=== PATIENT | female | born 1995 | race African-American/Black ===

== ENCOUNTER 2017-01-16 17:26 | Emergency (ER) | payer SELFPAY ==
--- NOTE | ~2017-01-16 | ER ---
PATIENT'S NAME: CASSIE BENTLEY [facility] AGE: 21 Y [address] ROOM: [place] [address] LOCATION: [facility] ADMIT DATE: 01/16/2017 ER/Outpatient Report DISCHARGE DATE: 01/16/2017 FAMILY PHYSICIAN: PHYSICIAN, NO ATTENDING PHYSICIAN: Wallace Newton Time of Arrival: 1726 hours. Time of Evaluation: 1735 hours. CHIEF COMPLAINT: Right lower quadrant abdominal pain. HISTORY OF PRESENT ILLNESS: This is a 21-year-old female who presents to the ER with right lower quadrant abdominal pain, this started yesterday. She states her pain did increase today. She states that it does make her feel nauseated. She has had no vomiting, no diarrhea, no constipation. She states that she has no troubles with urination. She describes her pain as stabbing in nature, it does not radiate anywhere. She states that she does have some symptoms of , so she is wondering if she could be because she is a few days late on her period. She states that she has not taken anything for pain prior to coming in. ALLERGIES: NO KNOWN ALLERGIES. MEDICATIONS: None. PAST MEDICAL HISTORY: She has had 4 children and 1 miscarriage. She did have to be on insulin during her . SOCIAL HISTORY: She has had 4 C-sections. Denies any drug or alcohol use. REVIEW OF SYSTEMS: A 10-point review of systems was completed and was negative with the exception of those discussed in the HPI. PHYSICAL EXAMINATION: VITAL SIGNS: Weight 77.6 kg taken, blood pressure 118/77, pulse 86, respirations 20, temperature 97.4 degrees tympanically, saturations 99% on room air. [place] Coma Score is 15. GENERAL: Alert, calm, well-developed female, in no obvious distress. PATIENT'S NAME: CASSIE BENTLEY [facility] AGE: 21 Y [address] ROOM: [place] [address] LOCATION: [facility] ADMIT DATE: 01/16/2017 ER/Outpatient Report DISCHARGE DATE: 01/16/2017 FAMILY PHYSICIAN: PHYSICIAN, NO ATTENDING PHYSICIAN: Wallace Newton HEENT: Head, normocephalic. Eyes, pupils are equal and reactive to light. She does display moist mucous membranes. LUNGS: Clear to auscultation bilaterally. No wheezes or crackles. HEART: Regular rate and rhythm. ABDOMEN: Soft. She does have some tenderness in her right lower quadrant with palpation. No guarding, no rebound tenderness. She has good bowel sounds throughout. EXTREMITIES: No clubbing or cyanosis. She does have full range of motion of all limbs. LABORATORY DATA AND X-RAYS: CBC: White count is 11.2, hemoglobin is 11.9, platelets 340. CMS: Glucose is 155, otherwise unremarkable. Urinalysis is negative for any infection. Urine HCG was negative. CT scan was done of the abdomen and pelvis and was negative for any acute findings. IMPRESSION: Right lower quadrant abdominal pain. ASSESSMENT AND PLAN: The patient rested comfortably here her entire stay. We will dismiss her to home. She may take Tylenol and ibuprofen as needed for pain control. She is to continue to push fluids, monitor her symptoms, and follow up with the primary care physician if no improvement. We did give her business cards for primary care physicians in [facility]. The patient understands and agrees with care. YUE AGGARWAL PA-C FOR MD PATEL SILVA/carlitos /[id number] d: 01/17/17 0126 t: 01/30/17 1933, OUTPATIENT REPORT
[2017-01-16 18:07] LABS: BASOPHIL # 0.1 K/uL (0.0-0.2); BASOPHIL % 0.4 %; EOSINOPHIL # 0.1 K/uL (0.0-0.5); EOSINOPHIL % 1.1 %; HEMOGLOBIN 11.9 g/dL (11.0-15.0); IMMATURE GRANULOCYTE % 0.3 %; LYMPHOCYTE # 2.9 K/uL (0.8-4.0); LYMPHOCYTE % 25.4 %; MCH 23.8 pg (27.0-34.0); MCHC 30.5 gm/dL (32.0-36.5); MCV 78.2 fl (83.0-98.0); MONOCYTE # 0.5 K/uL (0.0-1.0); MONOCYTE % 4.4 %; MPV 11.4 fl (9.4-12.4); NEUTROPHIL # (ANC) 7.7 K/uL (1.8-7.8); NEUTROPHIL % 68.4 %; NRBC % 0 /100WBC (0-0.00); PLATELET COUNT 340 K/uL (150-450); RBC 4.99 M/uL (3.50-5.00); RDW-CV 16.8 % (11.9-14.6); WBC 11.2 K/uL (4.0-11.0)
[2017-01-16 18:12] LABS: BILIRUBIN URINE NEGATIVE (NEGATIVE); BLOOD URINE NEGATIVE /UL (NEGATIVE); COLOR URINE YELLOW (YELLOW); GLUCOSE URINE 50 mg/dL (NEGATIVE); KETONE URINE NEGATIVE (NEGATIVE); LEUKOCYTES URINE NEGATIVE /UL (NEGATIVE); NITRITE URINE NEGATIVE (NEGATIVE); PROTEIN URINE NEGATIVE (NEGATIVE); SPEC GRAVITY URINE 1.015 (1.003-1.035); TURBIDITY URINE CLEAR (CLEAR); UROBILINOGEN URINE NORMAL (NORMAL)
[2017-01-16 18:20] LABS: ALBUMIN 3.6 gm/dL (3.5-5.0); ALK PHOS 111 IU/L (33-138); ALT 30 IU/L (12-78); ANION GAP 11.8 (10.0-19.0); AST 15 IU/L (10-40); BLOOD UREA NITROGEN 10 mg/dL (6-24); CALCIUM 8.7 mg/dL (8.5-10.5); CHLORIDE 104 mMol/L (96-110); CO2 29 mMol/L (22-32); CREATININE 0.6 mg/dL (0.5-1.1); ESTIMATED GFR (MDRD EQUATION) > 60; POTASSIUM 3.8 mMol/L (3.7-5.1); SODIUM 141 mMol/L (135-145); TOTAL BILIRUBIN 0.2 mg/dL (0.0-1.5)
== END 2017-01-16 19:40 | disposition disaster alternative care site (69) ==
LOC: GMED 17:26
PROVIDERS: Physician Assistant Medical
DX: R10.31 Right lower quadrant pain (principal)
CPT/HCPCS: Q9967

== ENCOUNTER 2017-02-02 21:22 | Emergency (ER) | payer SELFPAY ==
--- NOTE | ~2017-02-02 | ER ---
PATIENT'S NAME: CASSIE BENTLEY [facility] AGE: 21 Y [address] ROOM: [place] [address] LOCATION: ED ADMIT DATE: 02/02/2017 ER/Outpatient Report DISCHARGE DATE: 02/02/2017 FAMILY PHYSICIAN: PHYSICIAN, NO ATTENDING PHYSICIAN: Dhiraj Vargas TIME SEEN: 2140 hours. CHIEF COMPLAINT: Abdominal pain and nausea. HISTORY OF PRESENT ILLNESS: The patient is a 21-year-old female who presents to the emergency room complaining of abdominal pain for the last week. The pain has been associated with nausea. She has experienced some constipation, however, her last normal bowel movement was yesterday. Pain is described as stabbing. ALLERGIES: NONE. HOME MEDICATIONS: Include NovoLog NPH which she has not taken for several weeks. PAST MEDICAL HISTORY: Includes insulin-dependent diabetes. SURGERIES: Include C-sections x4. Last normal menstrual period was 01/05/2017. SOCIAL HISTORY: Nonsmoker. Denies alcohol use. The patient has moved recently from [place], [place]. She is currently living with her stepmom. The patient has been on Medicaid in [place]. REVIEW OF SYSTEMS: GENERAL: Today, no fever, chills. HEAD AND EENT: No complaints of headache or sore throat. RESPIRATORY: Denies any shortness of breath or cough. CARDIOVASCULAR: No previous history of murmurs. GASTROINTESTINAL: Includes lower abdominal pain mostly left side with history of constipation and nausea. GENITOURINARY: Denies flank pain. Denies any dysuria. Normal periods in December. Denies any vaginal discharge. SKIN: No recent rash. PATIENT'S NAME: CASSIE BENTLEY [facility] AGE: 21 Y [address] ROOM: [place] [address] LOCATION: ED ADMIT DATE: 02/02/2017 ER/Outpatient Report DISCHARGE DATE: 02/02/2017 FAMILY PHYSICIAN: PHYSICIAN, NO ATTENDING PHYSICIAN: Dhiraj Vargas PHYSICAL EXAMINATION: VITAL SIGNS: On exam, her blood pressure 143/83, her temperature was 97.7, pulse 98. GENERAL APPEARANCE: Female. Did not appear to be in any acute distress. EYES: PERRLA. No icterus. NOSE: Septum midline. MOUTH: Teeth appeared in adequate repair. Oral membranes moist. NECK: No cervical adenopathy. RESPIRATORY: Lungs were clear. Normal breath sounds throughout. HEART: No murmurs. No tachycardia. ABDOMEN: Soft, very slight tenderness in the left lower quadrant. No masses palpated. Bowel sounds were active. No CVA tenderness. SKIN: Warm and dry. LABORATORY DATA: Serum test was negative. Urine was clear. Did show positive glucose. CBC: White count 11.4, hemoglobin 12, ANC was 7.6. CMS: Serum glucose was 206. Chlamydia and gonorrhea in urine is still pending. ASSESSMENT: Left lower abdominal pain. PLAN: Just recommend the use of Tylenol. Follow up with the [facility] or return to the emergency room if symptoms continue or become worse. Recommend she try to establish a family doctor concerning her diabetes. NOAH TOMAS FOR MD KEVIN HAYNES/carlitos /[id number] d: 02/03/17 0220 t: 02/04/17 1033, OUTPATIENT REPORT
[2017-02-02 21:53] LABS: BASOPHIL # 0.1 K/uL (0.0-0.2); BASOPHIL % 0.5 %; EOSINOPHIL # 0.2 K/uL (0.0-0.5); EOSINOPHIL % 1.5 %; HEMATOCRIT 39.2 % (33.0-46.0); IMMATURE GRANULOCYTE % 0.2 %; LYMPHOCYTE % 26.3 %; MCH 23.7 pg (27.0-34.0); MCHC 30.6 gm/dL (32.0-36.5); MCV 77.5 fl (83.0-98.0); MONOCYTE # 0.6 K/uL (0.0-1.0); MONOCYTE % 5.4 %; MPV 10.5 fl (9.4-12.4); NEUTROPHIL # (ANC) 7.6 K/uL (1.8-7.8); NEUTROPHIL % 66.1 %; NRBC % 0 /100WBC (0-0.00); PLATELET COUNT 358 K/uL (150-450); RBC 5.06 M/uL (3.50-5.00); RDW-CV 17.5 % (11.9-14.6); WBC 11.4 K/uL (4.0-11.0)
[2017-02-02 22:07] LABS: BILIRUBIN URINE NEGATIVE (NEGATIVE); BLOOD URINE NEGATIVE /UL (NEGATIVE); COLOR URINE YELLOW (YELLOW); GLUCOSE URINE 50 mg/dL (NEGATIVE); KETONE URINE NEGATIVE (NEGATIVE); LEUKOCYTES URINE NEGATIVE /UL (NEGATIVE); NITRITE URINE NEGATIVE (NEGATIVE); PROTEIN URINE NEGATIVE (NEGATIVE); SPEC GRAVITY URINE 1.025 (1.003-1.035); UROBILINOGEN URINE NORMAL (NORMAL)
[2017-02-02 22:13] LABS: ALBUMIN 3.7 gm/dL (3.5-5.0); ALK PHOS 132 IU/L (33-138); ALT 24 IU/L (12-78); ANION GAP 13.8 (10.0-19.0); AST 12 IU/L (10-40); BLOOD UREA NITROGEN 9 mg/dL (6-24); CALCIUM 8.7 mg/dL (8.5-10.5); CHLORIDE 103 mMol/L (96-110); CO2 25 mMol/L (22-32); CREATININE 0.7 mg/dL (0.5-1.1); ESTIMATED GFR (MDRD EQUATION) > 60; POTASSIUM 3.8 mMol/L (3.7-5.1); SODIUM 138 mMol/L (135-145); TOTAL PROTEIN 8.4 g/dL (6.0-8.4)
[2017-02-02 22:16] LABS: TOTAL BILIRUBIN 0.3 mg/dL (0.0-1.5)
[2017-02-02 22:17] LABS: TURBIDITY URINE CLEAR (CLEAR)
== END 2017-02-02 22:37 | disposition disaster alternative care site (69) ==
LOC: GMED 21:22
PROVIDERS: Emergency Medicine
DX: R10.32 Left lower quadrant pain (principal); E11.9 Type 2 diabetes mellitus without complications